=== PATIENT | female | born 1990 | race American Indian/Alaskan Native ===

== ENCOUNTER 2024-12-18 15:31 | Emergency (ER) | payer MEDICAID, SELFPAY ==
[2024-12-18 15:36] VITALS: BP 146/70; PULSE 99; RESP 18; TEMP 36.9; O2SAT 93; BMI 64.6
[2024-12-18 16:30] LABS: Culture Indicated Urine Specimen Cultured
--- NOTE | 2024-12-18 16:45 | ED.FEMALEGU ---
HPI - Female Genitourinary General Chief complaint: Urogenital-Female Stated complaint: Poss UTI, back pain in [place] area, 2 days Time Seen by Provider: 12/18/24 15:46 Source: patient Mode of arrival: Ambulatory History of Present Illness HPI Narrative: Patient is a 34-year-old female history of rheumatoid arthritis on Enbrel presenting today with bilateral back pain and urinary frequency. She is taking azo [id number]. She reports symptoms have been going on for about 2 days. She thinks that she had a UTI about a month ago she said it quickly went away with 5 days of antibiotics now having recurrent symptoms. During that infection she had pain on 1 kidney now she has pain on both kidneys. No fever no nausea no vomiting. Related Data Previous Rx's ?Medication ?Instructions ?Recorded cephalexin 500 mg capsule 500 mg PO BID 7 days #14 caps 12/18/24 Allergies Allergy/AdvReac Type Severity Reaction Status Date / Time Sulfa (Sulfonamide Allergy Severe Anaphylaxis Verified 12/18/24 15:38 Antibiotics) sertraline (From Zoloft) Allergy Intermediate Fainting Verified 12/18/24 15:38 Penicillins Allergy Mild Rash Verified 12/18/24 15:38 Exam Initial Vital Signs Initial Vital Signs: Vital Signs Temperature 98.4 F 12/18/24 15:36 Pulse Rate 99 H 12/18/24 15:36 Respiratory Rate 18 12/18/24 15:36 Blood Pressure 146/70 H 12/18/24 15:36 Pulse Oximetry 93 12/18/24 15:36 Oxygen Delivery Method Room Air 12/18/24 15:36 GENERAL: Well-appearing, well-nourished and in no acute distress. CARDIOVASCULAR: peripheral pulses in tact, cap refill <2 sec RESPIRATORY: No respiratory distress, speaks in full sentences without difficulty ABDOMEN: Soft, nontender, no guarding or rebound CVA: Bilateral CVA tenderness EXTREMITIES: Normal range of motion, no clubbing or edema. Neurovascularly intact NEUROLOGICAL: Cranial nerves II through XII grossly intact. Normal gait and speech. SKIN: Warm, dry, no petechiae, no rashes or lesions. Course Orders Ordered: Discontinued Medications Cephalexin HCl (Cephalexin 250 Mg Capsule) 500 mg PO NOW ONE Stop: 12/18/24 17:16 Last Admin: 12/18/24 17:43 Dose: 500 mg Documented By: ELSIE Ketorolac Tromethamine (Ketorolac 30 Mg/Ml Vial) 30 mg IM NOW ONE Stop: 12/18/24 17:16 Last Admin: 12/18/24 17:44 Dose: 30 mg Documented By: ELSIE Vital Signs Vital signs: Vital Signs - 8 hr 12/18/24 15:36 Temperature 98.4 F Pulse Rate 99 H Respiratory Rate 18 Blood Pressure 146/70 H Pulse Oximetry 93 Oxygen Delivery Method Room Air MDM - Female Genitourinary Lab Data Labs: Lab Results 12/18/24 Range/Units 15:48 Urine Color Towner Urine Appearance Cloudy Urine pH TNP Ur Specific [place] TNP Urine Protein TNP Urine Glucose (UA) TNP Urine Ketones TNP Urine Occult Blood TNP Urine Nitrate TNP Urine Bilirubin TNP Urine Urobilinogen TNP Ur Leukocyte Esterase TNP Urine RBC 0-1/hpf (0-5/HPF) Urine WBC >100/hpf H (0-5/HPF) Ur Squamous Epith Cells 1-5 /hpf (0-5/HPF) Urine Bacteria Few (2-10) H (None) Ur Culture Indicated? Specimen cultured Micro UA Comment Vol Urine Centrifuged 10ml (spun) Urine Test Negative (Negative) MDM Narrative Medical decision making narrative: Patient 34-year-old female currently taking [id number] azo presenting today with urinary frequency. She just have some bilateral flank pain she is quite tender actually. Vitals overall reassuring she is afebrile not tachycardic. I do not see record of what antibiotics she was previously in but we will start her on Keflex. Discharge Plan Departure Patient Disposition: Home Clinical Impression: Urinary tract infection Instructions: DI for Urinary Tract Infection (UTI) Activity Restrictions/Additional Instructions: *You have been diagnosed with UTI *What to do: At this time increase fluids as tolerated *Continue to take medications as directed Keflex 500 mg twice a day for 7days--> [facility] in [place] *Follow up with your primary care provider in 2-3 days or call [phone] *Return to ER if you should have increasing back pain fevers nausea vomiting not tolerating medications or any new, worsening or concerning symptoms Prescriptions: New cephalexin 500 mg capsule 500 mg PO BID 7 Days Qty: 14 0RF Stand Alone Forms: Patient Portal/API
[2024-12-18 17:01] LABS: Appearance Urine UA Cloudy; Color Urine UA ORANGE
[2024-12-18] MEDS: KETOROLAC 30 MG/ML VIAL IM (17:44)
[2024-12-18 17:50] VITALS: BP 142/68; PULSE 99; RESP 18; O2SAT 95
== END 2024-12-18 17:51 | disposition home or self-care (01) ==
PROVIDERS: Emergency Provider Emergency Medicine
DX: N39.0 Urinary tract infection, site not specified (principal)
CPT/HCPCS: 81003; 81015; 81025; 87077; 87086; 87186; 96372; 99283; J1885